=== PATIENT | male | born 1950 | race Caucasian/White ===

== ENCOUNTER → 2018-02-23 | Outpatient (CLI) | payer MEDICARE, BC ==
--- NOTE | 2018-02-23 15:47 | CONS ---
CONSULTATION DATE OF SERVICE: 02/23/2018 67-year-old gentleman has [facility] for obstructive sleep apnea- hypopnea syndrome. HISTORY OF PRESENT ILLNESS/SLEEP WAKE EVALUATION: The patient has been diagnosed with obstructive sleep apnea more than 20 years ago. At that time, he was started on treatment with the CPAP, but then he underwent surgical treatment by Dr. Pop, surgery to the throat, UPPP, tonsillectomy and nasal surgery. The patient continued to have a CPAP but lost weight and subsequently stopped using CPAP about 15 years ago. Since that time, patient again increase his weight about the same level as before and now he has mild snoring and multiple awakenings from sleep up to 6 times with possible episodes of stopped breathing during sleep. SLEEP SCHEDULE: His sleep schedule from 3 am until 7 a.m. and on weekends from about 10:00 p.m. until 5:00 a.m. FALLING ASLEEP: No problems with falling asleep, although patient reads in bedroom. Patient does not watch TV in bedroom. DURING SLEEP: He prefers to sleep on the stomach position and again he wakes up from sleep about 6 times with 1 episode of nocturia. According to his he is flailing movements of his left hand and left foot during the night. DURING THE DAY/SLEEP WAKE EVALUATION: No history of hypnagogic hallucinations, sleep paralysis or cataplexy. During the day patient may take naps at 9:00 a.m. and 2:00 pm. [place] Sleepiness Scale significantly increased to 15. PAST MEDICAL HISTORY: Positive for hypertension, hyperlipidemia, allergy. PAST SURGICAL HISTORY: Right knee surgery in range of 1966-68, abdominal hernia, several abdominal hernia surgical treatments. MEDICATIONS: Losartan, hydrochlorothiazide, metoprolol, Singulair, vitamin D, Zocor, Zantac, aspirin and fish oil. SOCIAL HISTORY: Positive for smoking for 25 years up to 2 packs per day. Quit in 1990. Alcohol consumption rarely at the present time. FAMILY HISTORY: Hypertension, angina, heart problems, hyperlipidemia, arthritis, asthma, sleep apnea, snoring, ulcers. REVIEW OF SYSTEMS: Multiple awakenings from sleep, sleepiness during the day. PHYSICAL EXAM: gentleman without distress, BP 150/68, HR 72, RR around 25, height 5 feet 3 and one half inches and weight 205.6, BMI 34.6, temp is 98.3, oxygen saturation room air 95%. Neck is wide 18 and one half inches in circumflex. Oropharynx: No uvula. Moderately low position of soft palate. ABDOMEN: Obese. Neck Supple, no JVD. Thyroid is not palpable. LUNGS Clear to percussion and to auscultation. Good air exchange. No wheezing or rhonchi. HEART S1, S2 regular. No murmurs, gallops, or rubs. ABDOMEN Soft and nontender. Bowel sounds are present. No organomegaly appreciated. EXTREMITIES No clubbing or cyanosis. 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 Cranial nerves 2 to 7 intact. There is no fasciculation or atrophy. noted. No focal deficits observed. IMPRESSION: 1. History of obstructive sleep apnea-hypopnea syndrome in the past, multiple awakenings from sleep, moderately low position of soft palate, snoring, sleepiness during the day. [place] Sleepiness Scale of 15. Wide neck 18 and one half inches in circumference, obstructive sleep apnea-hypopnea syndrome. 2. Obesity BMI 34.6. 3. Hypertension. 4. Hyperlipidemia. 5. Allergy. 6. Status post several right knee surgeries. 7. Status post several abdominal surgeries for hernia. 8. Status post Uvulopalatopharyngoplasty, tonsillectomy and surgery on the nose for nasal septum deviation in the past. 9. History of movements of the left arm and left leg during in the night during the sleep. Possible periodic limb movements. PLAN: 1. Polysomnography for evaluation of patient's breathing during sleep. 2. CPAP/BiPAP titration if sleep study confirms obstructive sleep apnea-hypopnea syndrome. 3. Preferable position during sleep on the side. 4. No driving if patient feels any sleepiness. 5. I will see patient for follow up visit to explain results of testing and following plan. Thank you very much for referring this patient for consultation. Homer Montoya MD, PhD, FAASM Diplomat of [employer] [employer] [facility] [place] MMODL / CASANDRAN: [id number] /
== END | disposition home or self-care (01) ==
LOC: SLEEP 13:20
PROVIDERS: ATTEND Internal Medicine
DX: G47.33 Obstructive sleep apnea (adult) (pediatric) (principal); I10 Essential (primary) hypertension; E78.5 Hyperlipidemia, unspecified; T78.40XA Allergy, unspecified, initial encounter; E66.9 Obesity, unspecified; Z98.890 Other specified postprocedural states; Z68.34 Body mass index [BMI] 34.0-34.9, adult; Z90.89 Acquired absence of other organs; Z87.891 Personal history of nicotine dependence; Z79.899 Other long term (current) drug therapy; Z79.82 Long term (current) use of aspirin
CPT/HCPCS: 99211

== ENCOUNTER → 2019-09-29 | Outpatient (CLI) | payer MEDICARE, BC ==
[2019-09-29 10:33] LABS: Basophils # (A) 0.1 k/uL (0-0.2); Basophils % (A) 2 %; Eosinophils # (A) 0.2 k/uL (0-0.7); Eosinophils % (A) 4 %; HCT 49.4 % (39.0-53.0); HGB 15.6 gm/dL (13.0-17.5); Lymphocytes # (A) 1.6 k/uL (1.0-4.8); Lymphocytes % (A) 25 %; MCH 28.5 pg (25.0-35.0); MCHC 31.6 g/dL (31.0-37.0); MCV 90.3 fL (80.0-100.0); Mean Platelet Volume 7.8; Monocytes # (A) 0.7 k/uL (0-1.0); Monocytes % (A) 11 %; Neutrophils # (A) 3.4 k/uL (1.3-7.7); Neutrophils % (A) 54 %; Platelet Count 209 k/uL (150-450); RBC 5.47 m/uL (4.30-5.90); RDW 13.9 % (11.5-15.5); WBC 6.3 k/uL (3.8-10.6)
[2019-09-29 10:45] LABS: Potassium 4.5 mmol/L (3.5-5.1)
== END | disposition home or self-care (01) ==
LOC: LABPAT 09:14
PROVIDERS: ATTEND Orthopaedic Surgery
DX: Z01.818 Encounter for other preprocedural examination (principal); Z01.812 Encounter for preprocedural laboratory examination; M23.92 Unspecified internal derangement of left knee
CPT/HCPCS: 36415; 80051; 85025; 93005

== ENCOUNTER 2019-10-19 13:30 | Day surgery (SDC) | payer MEDICARE, BC ==
[2019-10-17 12:52] VITALS: BMI 31.7
--- NOTE | 2019-10-18 14:18 | HP ---
HISTORY AND PHYSICAL DATE OF SERVICE: 10/19/2019 Jeff Booth is a 68-year-old patient seen with progressive left knee pain. We discussed options. The patient elected to proceed with arthroscopy. Consent was obtained. PAST MEDICAL HISTORY: Hypertension, hyperlipidemia. PAST SURGICAL HISTORY: Appendectomy, carpal tunnel surgery, knee arthroscopy, tonsillectomy. DAILY MEDICATIONS: 1. Zocor. 2. Metoprolol. 3. Hydrochlorothiazide. 4. Losartan. ALLERGIES: SULFA and CODEINE. SOCIAL HISTORY: Denies current tobacco use. PHYSICAL EVALUATION OF THE LEFT KNEE: His range of motion 0 to 125. Mild effusion. There is tenderness along the medial joint line. Positive medial Roderick's. Tenderness along the lateral joint line. Ligaments stable. Hip rotation without pain. Distal neurovascular exam intact. RADIOGRAPHS OF THE LEFT KNEE: Revealed mild osteoarthritis. MRI of the left knee revealed medial and lateral meniscal tears. IMPRESSION: 1. Internal derangement, left knee with medial and lateral meniscal tears. 2. Hypertension. 3. Hyperlipidemia. PLAN: Left knee arthroscopy with partial meniscectomy, partial synovectomy and debridement. MMODL / IJN: [id number] /
[~2019-10-19 13:30] MED LIST: DEXAMETHASONE SOD PHOSPHATE 10 MG/ML 1 ML VIAL IV ONE; LACTATED RINGERS 1,000 ML IV SCH; LIDOCAINE 1% (10MG/ML) FOR IV START INTRADERMA PRN; MIDAZOLAM 2 MG/2 ML VIAL IV PRN; fentaNYL (PF) 50 MCG/ML 2 ML AMP IV PRN; fentaNYL (PF) 50 MCG/ML 2 ML AMP IVP PRN
[2019-10-19] MEDS ORDERED: ONDANSETRON 4 MG/2 ML VIAL IVP ONE (14:08)
[2019-10-19 14:11] LABS: Glucose,Whole Blood 90 mg/dL (75-99)
[2019-10-19] MEDS ORDERED: SCOPOLAMINE 1.5MG/72HR PATCH TRANSDERM ONE (14:28)
[2019-10-19] MEDS ORDERED: BUPIVACAINE (PF) 0.25% 30 ML VIAL SQ ONE (15:36)
[2019-10-19 15:39] LABS: Glucose,Whole Blood 90 mg/dL (75-99)
[2019-10-19] MEDS ORDERED: METOPROLOL TARTRATE 5 MG/5 ML VIAL IVP ONE (15:42)
[2019-10-19] MEDS ORDERED: HYDROmorphone (PF) 1 MG/ML ONE (15:42)
[2019-10-19] MEDS ORDERED: fentaNYL (PF) 50 MCG/ML 2 ML AMP ONE (15:42)
[2019-10-19] MEDS ORDERED: PROPOFOL 10 MG/ML 20 ML VIAL IV ONE (15:42)
[2019-10-19] MEDS ORDERED: LIDOCAINE 1% INJ 10MG/ML (20 ML MDV) ONE (15:42)
[2019-10-19] MEDS ORDERED: MIDAZOLAM 2 MG/2 ML VIAL ONE (15:42)
[2019-10-19] MEDS ORDERED: KETOROLAC 30 MG/ML 1 ML VIAL ONE (15:42)
[2019-10-19 16:45] VITALS: TEMP 98.1
--- NOTE | 2019-10-19 16:47 | P.OP ---
Date of Procedure: 10/19/19 Preoperative Diagnosis: Internal derangement left knee Postoperative Diagnosis: 1. Tear medial meniscus left knee 2. Grade 2 chondromalacia medial femoral condyle left knee 3. Grade 2/3 chondromalacia patella left knee 4. Reactive synovitis medial, lateral and suprapatellar compartments left knee Procedure(s) Performed: 1. Arthroscopic partial medial meniscectomy left knee 2. Arthroscopic chondroplasty medial femoral condyle left knee 3. Arthroscopic chondroplasty patella left knee 4. Arthroscopic partial synovectomy medial, lateral and suprapatellar compartments left knee Anesthesia: ТАТЬЯНАA, local Surgeon: Eyad Peres Estimated Blood Loss (ml): 10 Pathology: none sent Condition: stable Disposition: PACU Indications for Procedure: 68-year-old patient seen with progressive left knee pain. After having treatment options discussed, he elected to proceed with arthroscopy. Operative Findings: See description of procedure Description of Procedure: Patient was taken to the operative suite. Patient underwent a general anesthetic by the department of anesthesia. Patient was given preoperative antibiotics. The left lower extremity was placed in a well-padded arthroscopic leg martines. The left leg was prepped and draped in the normal sterile orthopedic fashion. A lateral parapatellar and suprapatellar incision was made. Trochars were inserted. Arthroscopy was initiated. Suprapatellar pouch reve aled diffuse thick reactive synovitis. The patellofemoral joint appeared to articulate congruently. There was grade 2/3 chondromalacia of the patella with some diffuse osteochondral tears present. The scope was guided into the medial gutter. No loose bodies or plica were identified. The scope was then guided into the medial compartment. A medial parapatellar incision was made. Trocar inserted followed by probe. There was a complex tear involving the posterior horn of the medial meniscus. It extended the mid body. There were grade 2 chondral moist changes medial femoral condyle with some osteochondral flap tears present. There was thick reactive synovitis anteriorly. I performed a partial medial meniscectomy. I performed a chondroplasty of the medial femoral condyle. I performed a partial synovectomy decompressing the reactive synovitis. The residual meniscus was stable. There was good decompression of the synovitis. The residual osteochondral surface was stable. Scope and probe were then guided into the intercondylar notch. Cruciates were identified, probed and found to be stable. The scope and probe were then guided into lateral compartment. Lateral meniscus appeared to have some mild superficial fraying along the midbody area. There were mild grade 1 chondromalacia changes of the lateral compartment. There was thick reactive synovitis anteriorly. I introduced a motorized shaver and performed a partial synovectomy decompressing thick reactive synovitis. I debrided that area of superficial fraying. The shaver was removed. There was good decompression of synovitis. The scope was in guided back into the suprapatellar compartment. I introduced a motorized shaver into the suprapatellar compartment. I debrided some piecemeal fragments of meniscus I encountered. I performed a chondroplasty the patella. I performed a partial synovectomy decompressing the thick reactive synovitis. The shaver was removed. I now took one more look on the entire knee, no residual debris. Instruments were now removed from the joint. The joint was infiltrated with .25% Marcaine. Steri-Strips were applied to the portal sites. Sterile dressings were applied. The patient was placed into a SABI hose. No tourniquet was utilized. The patient was awakened, transferred to a bed and taken to recovery stable satisfactory condition.
[2019-10-19] MEDS ORDERED: HYDROmorphone 0.5 MG/0.5 ML SYRINGE IVP ONE (16:59)
[2019-10-19] MEDS ORDERED: LACTATED RINGERS 1,000 ML IV ONE (17:16)
[2019-10-19 17:22] VITALS: RESP 16
[2019-10-19 17:53] VITALS: BP 148/85; PULSE 63
== END 2019-10-19 18:01 | disposition home or self-care (01) ==
LOC: OR 13:30
PROVIDERS: ATTEND Orthopaedic Surgery
DX: M23.222 Derangement of posterior horn of medial meniscus due to old tear or injury, left knee (principal); M23.201 Derangement of unspecified lateral meniscus due to old tear or injury, left knee; M22.42 Chondromalacia patellae, left knee; M65.862 Other synovitis and tenosynovitis, left lower leg; I10 Essential (primary) hypertension; E78.5 Hyperlipidemia, unspecified; G47.33 Obstructive sleep apnea (adult) (pediatric); Z88.2 Allergy status to sulfonamides; Z88.5 Allergy status to narcotic agent; Z79.899 Other long term (current) drug therapy; Z90.49 Acquired absence of other specified parts of digestive tract; Z90.89 Acquired absence of other organs; Z99.89 Dependence on other enabling machines and devices
CPT/HCPCS: 29880; J2250; J1100; J0690; J2405; J2001; J3010; J1885; J1170 ×2; J2704

== ENCOUNTER → 2020-11-20 | Outpatient (CLI) | payer MEDICARE ==
--- NOTE | 2020-11-20 17:22 | MR ---
EXAMINATION TYPE: MR knee RT wo con DATE OF EXAM: 11/20/2020 COMPARISON: HISTORY: Right Knee Pain TECHNIQUE: Multiplanar, multisequence imaging of the knee is performed without IV contrast. FINDINGS: MEDIAL MENISCUS: There is increased signal within the posterior horn medial meniscus. Communication w ith the articular surface is not clearly identified. Findings could be compatible with internal tear type I. Anterior horn medial meniscus is intact. LATERAL MENISCUS: Anterior and posterior horns are intact without tear. CRUCIATE LIGAMENTS: The anterior and posterior cruciate ligaments are intact and unremarkable. COLLATERAL LIGAMENTS: Lateral collateral ligament is intact. There is increased signal adjacent to th e medial collateral ligament may be mild strain. Correlate with location of patient's pain. EXTENSOR MECHANISM: Visualized quadriceps and patellar tendons are intact. EFFUSION: There is a small joint effusion present. POPLITEAL CYST: No popliteal/oconnor cyst. TRICOMPARTMENT SPACES: There is mild narrowing of the medial lateral compartment joint spaces. CARTILAGE: There is thinning of the medial compartment articular cartilage. Remaining articular carti candida appears intact. BONE MARROW SIGNAL: No focal abnormal marrow signal is appreciated. OTHER: There is some mild soft tissue edema superficially. IMPRESSION: 1. Type I internal tear posterior horn medial meniscus. No communication with the articular surface i s evident. 2. Mild osteoarthritic degenerative change medial compartment with thinning of the articular cartilag e. 3. Small joint effusion 4. Mild strain of the medial collateral ligament may be present.
== END | disposition home or self-care (01) ==
LOC: RADMRIMAIN 12:56
PROVIDERS: ATTEND Orthopaedic Surgery
DX: M23.321 Other meniscus derangements, posterior horn of medial meniscus, right knee (principal); M17.11 Unilateral primary osteoarthritis, right knee

== ENCOUNTER → 2021-01-16 | Outpatient (CLI) | payer MEDICARE ==
[2021-01-16 15:01] LABS: Basophils % (A) 1 %; Eosinophils # (A) 0.2 k/uL (0-0.7); Eosinophils % (A) 3 %; HCT 48.9 % (39.0-53.0); HGB 15.7 gm/dL (13.0-17.5); Lymphocytes # (A) 2.3 k/uL (1.0-4.8); Lymphocytes % (A) 29 %; MCH 28.4 pg (25.0-35.0); MCHC 32.1 g/dL (31.0-37.0); MCV 88.6 fL (80.0-100.0); Mean Platelet Volume 7.6; Monocytes # (A) 0.8 k/uL (0-1.0); Monocytes % (A) 10 %; Neutrophils # (A) 4.4 k/uL (1.3-7.7); Neutrophils % (A) 54 %; Platelet Count 225 k/uL (150-450); RBC 5.52 m/uL (4.30-5.90); RDW 14.7 % (11.5-15.5)
[2021-01-16 15:09] LABS: Potassium 4.1 mmol/L (3.5-5.1)
== END | disposition home or self-care (01) ==
LOC: LABPAT 14:37
PROVIDERS: ATTEND Orthopaedic Surgery
DX: Z01.812 Encounter for preprocedural laboratory examination (principal); M23.91 Unspecified internal derangement of right knee; R00.1 Bradycardia, unspecified
CPT/HCPCS: 36415; 80051; 85025; 93005

== ENCOUNTER 2021-02-06 10:20 | Day surgery (SDC) | payer MEDICARE ==
[2021-02-04 11:24] VITALS: BMI 32.1
[~2021-02-06 10:20] MED LIST changes: -DEXAMETHASONE SOD PHOSPHATE 10 MG/ML 1 ML VIAL IV ONE; +DEXAMETHASONE SOD PHOSPHATE 4 MG/ML 1 ML VIAL IV ONE; +HYDROmorphone 0.5 MG/0.5 ML SYRINGE IVP PRN; -LIDOCAINE 1% (10MG/ML) FOR IV START INTRADERMA PRN; -MIDAZOLAM 2 MG/2 ML VIAL IV PRN; +ONDANSETRON 4 MG/2 ML VIAL IVP ONE; -fentaNYL (PF) 50 MCG/ML 2 ML AMP IV PRN; -fentaNYL (PF) 50 MCG/ML 2 ML AMP IVP PRN
[2021-02-06] MEDS ORDERED: BUPIVACAINE (PF) 0.25% 30 ML VIAL SQ ONE ×2 (10:47→11:16)
[2021-02-06] MEDS ORDERED: MIDAZOLAM 2 MG/2 ML VIAL ONE (10:54)
[2021-02-06] MEDS ORDERED: PROPOFOL 10 MG/ML 20 ML VIAL IV ONE (10:54)
[2021-02-06] MEDS ORDERED: LIDOCAINE 1% INJ 10MG/ML (20 ML MDV) ONE (10:54)
[2021-02-06] MEDS ORDERED: fentaNYL (PF) 50 MCG/ML 2 ML AMP ONE (10:54)
[2021-02-06 10:56] LABS: Glucose,Whole Blood 101 mg/dL (75-99)
--- NOTE | 2021-02-06 11:50 | P.OP ---
Date of Procedure: 02/06/21 Preoperative Diagnosis: Internal derangement right knee Postoperative Diagnosis: 1. Tear medial meniscus right knee 2. Reactive synovitis medial, lateral and suprapatellar compartments right knee Procedure(s) Performed: 1. Arthroscopic partial medial meniscectomy right knee 2. Arthroscopic partial synovectomy medial, lateral and suprapatellar compartments right knee Anesthesia: ТАТЬЯНАA, local Surgeon: Eyad Peres Estimated Blood Loss (ml): 7 Pathology: none sent Condition: stable Disposition: PACU Indications for Procedure: 70-year-old patient seen with progressive right knee pain. After treatment options were discussed, he elected to proceed with arthroscopy. Operative Findings: see description of procedure Description of Procedure: Patient was taken to the operative suite. Patient underwent a general ane sthetic by the department of anesthesia. Patient was given preoperative antibiotics. The right lower extremity was placed in a well-padded arthroscopic leg martines. The right leg was prepped and draped in the normal sterile orthopedic fashion. A lateral parapatellar and suprapatellar incision was made. Trochars were inserted. Arthroscopy was initiated. Suprapatellar pouch field diffuse thick reactive synovitis. The patellofemoral joint appeared to articulate congruently. There grade 2 chondromalacia of the patellofemoral joint with no significant osteochondral tears present.. The scope was guided into the medial gutter. Loose bodies or plica were identified. The scope was then guided into the medial compartment. A medial parapatellar incision was made. Trocar inserted followed by probe. There was a complex tear involving the posterior horn medial meniscus extending slightly into the midbody. There were grade 1 chondromalacia changes of the medial femoral condyle. There was thick reactive synovitis anteriorly. I performed a partial medial meniscectomy getting down to stable meniscal tissue. I performed a partial synovectomy decompressing the thick reactive synovitis. The residual meniscus was stable. There was good decompression of the synovitis. Scope and probe were then guided into the intercondylar notch. Cruciates were identified, probed and found to be stable. The scope and probe were then guided into lateral compartment. The lateral meniscus was probed and found to be stable. There was no significant chondromalacia. There was thick reactive synovitis anteriorly. I introduced a motorized shaver and performed a partial synovectomy. The shaver was removed. There was good decompression of the synovitis. The scope was in guided back into the suprapatellar compartment. I introduced a motorized shaver into the super patellar compartment. I debrided some piecemeal fragments of meniscus I encountered. I performed a partial synovectomy. The shaver was removed. There was good decompression of the synovitis. I took one more look around the entire knee. There was no residual debris. Instruments were now removed from the joint. The joint was infiltrated with .25% Marcaine. Steri-Strips were applied to the portal sites. Sterile dressings were applied. The patient was placed into a SABI hose. No tourniquet was utilized. The patient was awakened, transferred to a bed and taken to recovery stable satisfactory condition.
[2021-02-06 11:53] VITALS: TEMP 96.8
[2021-02-06 11:57] VITALS: RESP 16
[2021-02-06 12:38] VITALS: BP 128/82; PULSE 61
== END 2021-02-06 13:45 | disposition home or self-care (01) ==
LOC: OR 10:20
PROVIDERS: ATTEND Orthopaedic Surgery
DX: S83.281A Other tear of lateral meniscus, current injury, right knee, initial encounter (principal); E78.5 Hyperlipidemia, unspecified; I10 Essential (primary) hypertension; Z79.899 Other long term (current) drug therapy; Z88.5 Allergy status to narcotic agent; Z88.2 Allergy status to sulfonamides; G47.33 Obstructive sleep apnea (adult) (pediatric); M19.90 Unspecified osteoarthritis, unspecified site; Z85.828 Personal history of other malignant neoplasm of skin
CPT/HCPCS: 29881; 29876; J2250; J1100; J0690; J2405; J2001; J3010; J2704

== ENCOUNTER 2021-10-08 10:04 | Day surgery (SDC) | payer MEDICARE ==
[2021-10-07 10:30] VITALS: BMI 31.7
[~2021-10-08 10:04] MED LIST changes: -DEXAMETHASONE SOD PHOSPHATE 4 MG/ML 1 ML VIAL IV ONE; +DEXAMETHASONE SOD PHOSPHATE 4 MG/ML 1 ML VIAL IV PRN; +FAMOTIDINE 20 MG/2 ML VIAL IV PRN; -HYDROmorphone 0.5 MG/0.5 ML SYRINGE IVP PRN; +LIDOCAINE 1% (10MG/ML) FOR IV START INTRADERMA PRN; -ONDANSETRON 4 MG/2 ML VIAL IVP ONE; +ONDANSETRON 4 MG/2 ML VIAL IVP PRN; +fentaNYL (PF) 50 MCG/ML 2 ML AMP IV PRN; +metroNIDAZOLE-NS PMX 500 MG in SALINE 1 100ML.BAG IVPB PRN
[2021-10-08] MEDS: OXYMETAZOLINE 0.05% NASL SPRAY 1 SPRAY BOTTLE EA NOSTRIL PRN ×5 (11:06→11:34)
[2021-10-08 11:09] VITALS: RESP 16
[2021-10-08 11:24] LABS: Glucose,Whole Blood 102 mg/dL (75-99)
[2021-10-08] MEDS ORDERED: ONDANSETRON 4 MG/2 ML VIAL ONE (11:29)
[2021-10-08] MEDS ORDERED: DEXAMETHASONE SOD PHOSPHATE 4 MG/ML 1 ML VIAL IVP ONE (11:33)
[2021-10-08] MEDS ORDERED: SCOPOLAMINE 1.5MG/72HR PATCH TRANSDERM ONE (11:33)
[2021-10-08] MEDS ORDERED: DEXAMETHASONE SOD PHOSPHATE 4 MG/ML 1 ML VIAL ONE (11:40)
[2021-10-08] MEDS ORDERED: fentaNYL (PF) 50 MCG/ML 2 ML AMP ONE (11:40)
[2021-10-08] MEDS ORDERED: MIDAZOLAM 2 MG/2 ML VIAL ONE (11:40)
[2021-10-08] MEDS ORDERED: PROPOFOL 10 MG/ML 20 ML VIAL IV ONE (11:40)
[2021-10-08] MEDS ORDERED: ROCURONIUM 10 MG/ML (5 ML VIAL) IV ONE (11:40)
[2021-10-08] MEDS ORDERED: GLYCOPYRROLATE 0.2 MG/ML 2 ML VIAL ONE (11:40)
[2021-10-08] MEDS ORDERED: SUCCINYLCHOLINE CHLORIDE 100 MG/5 ML SYR IV ONE (11:40)
[2021-10-08] MEDS ORDERED: NEOSTIGMINE 1 MG/ML 10 ML VIAL ONE (11:40)
[2021-10-08] MEDS ORDERED: LIDOCAINE 2%-EPI 1:100,000 20 ML VIAL SQ ONE ×2 (12:11)
[2021-10-08] MEDS ORDERED: BACITRACIN ZINC 500 UNIT/GM OINT 28.4 GM TUBE TOPICAL ONE (12:11)
--- NOTE | 2021-10-08 13:00 | P.OP ---
Date of Procedure: 10/08/21 Preoperative Diagnosis: Deviated nasal septum Inferior turbinate hypertrophy Chronic sinusitis Postoperative Diagnosis: Same Procedure(s) Performed: Septoplasty Outfractured and submucous resection of the inferior turbinates Bilateral endoscopic sinus surgery including bilateral maxillary antrostomy with removal of tissue from maxillary sinuses, bilateral anterior posterior ethmoidectomy, bilateral wendy bullectomy Anesthesia: SERENA Surgeon: José Wasserman Estimated Blood Loss (ml): 10 Pathology: other (Nasal septum and sinus contents) Condition: stable Disposition: PACU Indications for Procedure: This is a 70-year-old white male who has chronic nasal airway obstruction and congestion and recurrent/chronic sinusitis with evidence of chronic sinusitis on CT Operative Findings: Nasal septum deviated to the right with inferior turbinate hypertrophy bilaterally. There was scarring and some cartilage and bone missing from the nasal septum presumably from previous procedure .Obstruction of the ostiomeatal complexes bilaterally with small polyps maxillary sinuses bilaterally with mucosal thickening throughout the ethmoid sinuses and bilateral wendy bullosa cells larger on the left and the right Description of Procedure: The patient was brought into the operative suite and placed in a supine position. The patient underwent induction of general anesthesia with oral endotracheal intubation without difficulty. The patient was prepped and draped in the usual aseptic fashion with the orbits in the operating field for monitoring to the case and the computed tomography scan was on the computer screen for review throughout the case. 1% lidocaine with 1 :100,000 epinephrine was infused submucosally into both sides of the nasal septum as well as the lateral nasal wall and anterior tips of the middle turbinates. While this was taking vasoconstrictive effect the inferior turbinates were infractured with Gobles elevator and partial submucous resection of the inferior turbinates was performed with a portion of the submucosal soft tissue and the inferior turbinate bone removed with Coblation device. The inferior turbinates were then outfractured with the Gobles elevator. A left hemitransfixion incision was then made with the mucoperichondrial and mucoperiosteal flap on the left elevated. The bony cartilaginous junction was disarticulated and the mucoperiosteal flap on the right was elevated. Bony nasal septal deformities were removed with Tc forceps and an inferior cartilaginous strip was removed leaving a full 1.5 cm caudal strut. Checking intranasally this corrected the nasoseptal deformities and the hemitransfixion incision was closed with a running 4-0 chromic suture. Full 0 endoscopic examination is performed bilaterally. Beginning on the left, the middle turbinate was medialized. The maxillary ostium was located with a ballpoint probe and an infundibulotomy was performed followed by uncinectomy. The maxillary antrostomy was enlarged at the expense of the anterior and posterior fontanelle taking care anteriorly not to injure the lacrimal bone. The maxillary sinus was evaluated with 30 and 70 endoscope .[Abnormal appearing tissue was removed from the maxillary sinus]. Anterior and posterior ethmoidectomy were then performed from anterior to posterior to the level of the skull base. The roof of the anterior ethmoid air cells were then cleaned from posterior to anterior using up-biting Blakesley forceps. Patient also had bilateral wendy bullosa cells and the lateral one half of these were removed with microdebrider this completely in the wendy bullectomy Attention was then turned to the right where the procedures were followed as they had been on the left. [Nasopore nasal dressing was placed in the middle meatus bilaterally under direct visualization]. Bilateral Aleman airway splints coated with bacitracin ointment were placed and sutured transseptally with a 4-0 nylon suture. The patient was suctioned in oral gastric fashion and was allowed to emerge from general anesthesia having tolerated procedure well and was extubated in the operating suite and transferred to the postoperative recovery area in satisfactory condition.
[2021-10-08 13:22] VITALS: TEMP 97.6
[2021-10-08] MEDS ORDERED: LACTATED RINGERS 1,000 ML IV ONE (13:30)
[2021-10-08 14:58] VITALS: BP 126/71; PULSE 63
== END 2021-10-08 15:34 | disposition home or self-care (01) ==
LOC: OR 10:04
PROVIDERS: ATTEND Otolaryngology
DX: G47.30 Sleep apnea, unspecified (principal); J34.3 Hypertrophy of nasal turbinates; J34.2 Deviated nasal septum; J32.9 Chronic sinusitis, unspecified; K21.9 Gastro-esophageal reflux disease without esophagitis; E78.00 Pure hypercholesterolemia, unspecified; I10 Essential (primary) hypertension; E78.5 Hyperlipidemia, unspecified; G47.33 Obstructive sleep apnea (adult) (pediatric); R42 Dizziness and giddiness; Z98.890 Other specified postprocedural states; H91.90 Unspecified hearing loss, unspecified ear; Z91.09 Other allergy status, other than to drugs and biological substances; Z82.49 Family history of ischemic heart disease and other diseases of the circulatory system; Z83.79 Family history of other diseases of the digestive system; Z87.891 Personal history of nicotine dependence; J30.89 Other allergic rhinitis; Z79.899 Other long term (current) drug therapy; Z88.5 Allergy status to narcotic agent; Z88.2 Allergy status to sulfonamides
CPT/HCPCS: 88305; 88300; 30520; 30140; 31267; 31255; 31240; J2250; J1100; J2710; J0690; J2405; J3010; J0330; J2704

== ENCOUNTER → 2022-08-03 | Outpatient (CLI) | payer MEDICARE ==
[2022-08-03 10:50] LABS: ALT 40 U/L (10-49); AST 26 U/L (14-35)
[2022-08-03 10:51] LABS: Chol/HDL Ratio 3.92 Ratio; LDL Cholesterol,Calculated 66.7 mg/dL (0.0-131.0)
== END | disposition home or self-care (01) ==
LOC: LABWHC1 07:21
PROVIDERS: ATTEND Nurse Practitioner Adult Health
DX: E78.2 Mixed hyperlipidemia (principal)
CPT/HCPCS: 36415; 80061; 84450; 84460

== ENCOUNTER → 2023-05-06 | Outpatient (CLI) | payer MEDICARE ==
[2023-05-06 16:33] LABS: Basophils # (A) 0.04 X 10*3/uL (0.00-0.10); Basophils % (A) 0.6 %; Eosinophils # (A) 0.21 X 10*3/uL (0.04-0.35); Eosinophils % (A) 3.3 %; HCT 43.5 % (39.6-50.0); Lymphocytes # (A) 1.52 X 10*3/uL (0.90-5.00); Lymphocytes % (A) 23.7 %; MCHC 32.2 d/dL (32.0-37.0); MCV 90.1 FL (80.0-97.0); Mean Platelet Volume 10.5 FL (9.5-12.2); Monocytes # (A) 1.32 X 10*3/uL (0.20-1.00); Monocytes % (A) 20.6 %; NRBC Per 100 WBC 0 X 10*3/uL (0.00-0.01); Neutrophils % (A) 51.5 %; Platelet Count 235 X 10*3/uL (140-440); RBC 4.83 X 10*6/uL (4.40-5.60); RDW 15.2 % (11.5-14.5); WBC 6.41 X 10*3/uL (4.50-10.00)
[2023-05-06 17:56] LABS: ALT 34 U/L (10-49); AST 24 U/L (14-35); Albumin 4.2 d/dL (3.8-4.9); Alkaline Phosphatase 75 U/L (41-126); BUN/Creat Ratio 15.67 Ratio (12.00-20.00); Blood Urea Nitrogen 18.8 mg/dL (9.0-27.0); Calcium 8.8 mg/dL (8.7-10.3); Chloride 107 mmol/L (96-109); Chol/HDL Ratio 3.37 Ratio; Globulin 2.1 d/dL (1.6-3.3); Glucose 122 mg/dL (70-110); LDL Cholesterol,Calculated 44.1 mg/dL (0.0-131.0); Potassium 4.5 mmol/L (3.5-5.5); Sodium 144 mmol/L (135-145); T4, Free (Free Thyroxine) 1.13 ng/dL (0.80-1.80); Total Bilirubin 0.3 mg/dL (0.3-1.2); Total Protein 6.3 d/dL (6.2-8.2)
== END | disposition home or self-care (01) ==
LOC: LABWHC1 07:32
PROVIDERS: ATTEND Internal Medicine Geriatric Medicine
DX: E07.9 Disorder of thyroid, unspecified (principal); R73.03 Prediabetes
CPT/HCPCS: 36415; 80053; 80061; 83036; 84439; 84443; 85025